=== PATIENT | female | born 1980 | race Caucasian/White ===

== ENCOUNTER → 2017-06-10 | Outpatient (CLI) | payer MEDICAID ==
[~2017-06-10] MED LIST: BENTYL10 MG OR; BENZONATATE100 MG PO; CIPRO 500MG TA500 MG PO; CLARITIN 10MG T10 MG PO; CLINDAMYCIN HC300 MG PO; DOXYCYCLINE75 M1 PO; DULCOLAX10 MG PR; ERYTHROMYCIN 2250 M3 PO; FLEXERIL10 MG PO; HYDROCODONE 7.51 TAB PO; HYDROCODONE1 TABLET PO; HYOSCYAMINE0.125 M6 SL; IBUPROFEN800 MG PO; KEFLEX 500MG.500 MG PO; LORTAB 5/500 501 TAB PO; MAGNESIUM CITRA1 BOT PO; MEDROL 4MG. DOSE4 MG PO; MIRALAX17 GM/PACK PO; NAPROXEN SODIU500 MG PO; NAPROXEN500 M1 PO; NEURONTIN100 MG PO; NOMEDS *; PHENERGAN 25MG.25 M1 PO; PRENATAL1 TA1 PO; PREVACID 15 MG15 M1 PO; PYRIDIUM 200MG200 MG PO; RANITIDINE150 M1 PO; SUBOXONE1 FI1 SL; TAMIFLU 75MG CA75 MG PO; TESSALON PERLE100 MG PO; TRAMADOL 50MG T50 MG PO; TRONOLANE TP; TYLENOL W/CODEI1 TA2 PO; ULTRAM 50 MG TA50 MG PO; VIBRAMYCIN HYC100 MG PO; VICODIN 5/500 T1 TAB PO; VOLTAREN75 MG PO; XANAX 1MG TABLET1 MG PO; ZANTAC 300300 MG PO; ZITHROMAX 250M250 MG PO; ZITHROMAX Z PA250 MG PO; ZOLOFT 50MG TAB50 MG PO
[2017-06-10 11:16] LABS: HEMOGLOBIN 13.8 g/dL (12.2-16.2); LYMPH # 2.1 K/mm3 (0.7-4.5); LYMPH % 29.1 % (10-50.0)
[2017-06-10 15:32] LABS: BUN 9 mg/dL (7-18); GFR (ESTIMATED) 94 ML/MIN (59-)
[2017-06-11 08:46] LABS: Vitamin D, 25-Hydroxy 30.4 ng/mL (30.0-100.0)
[2017-06-11 09:38] LABS: Vitamin B12 307 pg/mL (211-946)
[2017-06-11 14:40] LABS: Anti-DNA (DS) Ab Qn 1 IU/mL (0-9)
[2017-06-13 18:40] LABS: CCP Antibodies IgG/IgA 5 units (0-19)
[2017-06-14 12:41] LABS: Antinuclear Antibodies, IFA Negative (.)
== END ==
LOC: LAB 10:30
PROVIDERS: Physician Assistant
DX: M25.50 Pain in unspecified joint (principal); R63.4 Abnormal weight loss; R53.83 Other fatigue